=== PATIENT | male | born 1960 | race Caucasian/White ===

== ENCOUNTER 2020-06-04 16:29 | Emergency (ER) | payer OTHER ==
[~2020-06-04] VITALS: Ht 182.9 cm; Wt 106.1 kg
[2020-06-04] MEDS ORDERED: NIGHTTIME SLEEP25 M1 PO (17:28)
[2020-06-04] MEDS ORDERED: VISTARIL 25 MG25 M1 PO (17:28)
[2020-06-04 17:52] VITALS: BP 121/70
== END 2020-06-04 17:52 | disposition home or self-care (01) ==
LOC: M.ERS 16:29
DX: G47.00 Insomnia, unspecified (principal); U07.1 COVID-19